=== PATIENT | female | born 1965 | race Caucasian/White ===

== ENCOUNTER 2024-02-29 11:33 | Emergency (ER) | payer BC ==
[~2024-02-29] VITALS: Ht 160 cm; Wt 86.2 kg
[2024-02-29 12:02] VITALS: BP_SYST 149; PULSE 81; RESP 18; TEMP 98.4; O2SAT 98
[2024-02-29] MEDS ORDERED: NIRM1TAB9 PO (13:21)
[2024-02-29 13:38] VITALS: BP_SYST 142; PULSE 85; RESP 18; TEMP 97.6; O2SAT 98
== END 2024-02-29 13:40 | disposition home or self-care (01) ==
LOC: SED 11:33
DX: U07.1 COVID-19 (principal); M79.7 Fibromyalgia
CPT/HCPCS: 71045; 99283